=== PATIENT | female | born 1955 | race Caucasian/White ===

== ENCOUNTER → 2017-02-08 | Day surgery (SDC) | payer MEDICAID ==
[~2017-02-08] MED LIST: ANAPROX DS550 MG PO; GABAPENTIN100 M1 PO; MOTRIN800 MG PO; NOMEDS *
--- NOTE | 2017-02-08 09:32 | Pain Management SOAP Note ---
SOAP Note Pain Clinic Subjective: This patient's a pleasant 61-year-old white female that we saw for initial consultation on 01/14/2017. At that time her main complaint was RIGHT shoulder pain with limited range of motion. Also, she complained of low back pain that she describes as constant, dull, aching. She rated the low back pain 8/10. However, she wanted to take care of her RIGHT shoulder prior to anything else. We set her up an appointment with Dr. Lama for RIGHT shoulder consultation. Patient states she did not go see Dr. Lama. We recently upon with Dr. Lama at that time. Also, set the patient up for medial branch block L4-5, L5-S1 bilaterally. Patient was having intense lumbar back pain with increase in pain with flexion, extension, LEFT and RIGHT rotation. Patient presents to our procedure area today for medial branch block lumbar spine L4-5, L5-S1. However, patient states she does not want injections in her low back. Patient asking for a hip injection. Also, patient reports she went to see an orthopedic doctor in [place] regarding her RIGHT shoulder pain. Patient informs me today she has an infection in the RIGHT shoulder and is taking antibiotics. I informed patient we would not do cortisone injections in her low back or hip due to the fact she has an ongoing infection. Patient asking for narcotic pain medication. I informed patient we would not be writing her narcotic pain medication. We will reschedule the patient to come back and see me in the pain clinic in 2 weeks. at 0940
== END ==
LOC: PM 09:00
DX: Z53.9 Procedure and treatment not carried out, unspecified reason (principal)